=== PATIENT | male | born 1955 | race Caucasian/White ===

== ENCOUNTER 2024-09-24 16:25 | Emergency (ER) | payer MEDICARE | END 2024-09-24 18:00 | disposition home or self-care (01) | LOC: CSHERS 16:25 | DX: B35.4 Tinea corporis (principal); B02.29 Other postherpetic nervous system involvement; I10 Essential (primary) hypertension; E11.9 Type 2 diabetes mellitus without complications; I48.91 Unspecified atrial fibrillation; Z79.01 Long term (current) use of anticoagulants | CPT/HCPCS: 99283 ==